=== PATIENT | male | born 1990 | race Caucasian/White ===

== ENCOUNTER → 2017-07-26 | Outpatient (CLI) | payer MEDICARE, MEDICAID ==
[2017-07-26 12:25] LABS: BUN 6 mg/dL (7-18)
[2017-07-26 12:29] LABS: GFR (ESTIMATED) 104 ML/MIN (>60)
[2017-07-26 12:30] LABS: HEMOGLOBIN 15.4 g/dL (14.1-18.0); LYMPH # 2.5 K/mm3 (0.7-4.5); LYMPH % 27.2 % (10-50)
== END ==
LOC: LAB 11:13
PROVIDERS: Nurse Practitioner Psychiatric/Mental Health
DX: F34.81 Disruptive mood dysregulation disorder (principal); Z79.899 Other long term (current) drug therapy; E03.9 Hypothyroidism, unspecified